=== PATIENT | male | born 1970 | race Caucasian/White ===

== ENCOUNTER → 2020-04-20 09:40 | Outpatient (CLI) | payer OTHER, SELFPAY ==
[2020-04-22 02:12] LABS: COVID19 Sendout Not Detected (Not Detect)
== END ==
PROVIDERS: Visit Provider Student in an Organized Health Care Education/Training Program
DX: Z11.59 Encounter for screening for other viral diseases (principal)
CPT/HCPCS: 87635

== ENCOUNTER 2020-04-23 09:03 | Day surgery (SDC) | payer OTHER, SELFPAY ==
[2020-04-19 13:02] VITALS: BMI 26.6
[2020-04-23] VITALS (12 sets, daily range): BP systolic 92–145; BP diastolic 49–92; PULSE 61–83; RESP 10–18; TEMP 36.4–36.8; O2SAT 92–99; BMI 26.6
[2020-04-23] MEDS: LACTATED RINGERS 1,000 ML 42 ML IV ×2 (09:21→11:38)
--- NOTE | 2020-04-23 09:33 | PM.PREOP ---
Pre-operative Note COVID-19 COVID-19 status: Negative Result date/Date tested (Pos, Neg/Pending): 04/20/20 Interval Note History & Physical reviewed/Exam performed by Physician: Yes Changes to H&P: No
--- NOTE | 2020-04-23 09:35 | PM.OP.1 ---
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 They had failed conservative management and requested operative intervention. Risks and benefits of surgery were discussed and appropriate consents were obtained. Surgeon: Sebastian Wilson Dowel Sander Operator: Caryl Garcia Anesthesia Type: General Operative Notes Findings: None Closure Type: primary Specimen(s): none sent Estimated Blood Loss (mL): 10 Procedure in detail: Patient was brought to the operating room and intubated on the table. A time-out was performed. There were rolled over the well-padded prone position on the Dat table. The back was prepped and draped in standard sterile fashion. Preoperative antibiotics were given. Using fluoroscopy, a 3 cm incision was made to the left of the midline at the L3-4 level. We used Bovie to come down to and split the fascia. We then used the [employer] Ma[employer] dilators with fluoroscopy and then opened our retractors. The soft tissue was cleared off with Bovie, a marker was placed, an x-ray was taken to confirm positioning. We then brought in the microscope. A combination of high-speed bur and Kerrison were used to perform a left-sided laminectomy. We reached across the other side and carefully depressed the dura and remove the ligamentous and facet hypertrophy from the opposite side as well to fully clear up the central canal. We then carefully retracted the dura and expose the disc. This matched up with the MRI with a very large central punctate herniation. This was cleared with bipolar. A scalpel used to perform an annulotomy from the left-hand side and a pituitary was used to perform the diskectomy. The ball probe was swept underneath the dura along the disc to make sure there were no further loose fragments. This was also placed into the disc and moved around to make sure there were no further loose fragments. Once everything was adequately decompressed, the wound was copiously irrigated. An epidural catheter was filled with 100 mcg of fentanyl and 8 mL of 0.25% Marcaine. The dura was carefully depressed under the laminotomy site and the catheter was advanced 6 cm cephalad. The retractor was removed and the fascia was closed. The epidural catheter was then injected without resistance and removed. Vancomycin powder was placed in the wound. Superficial and skin were closed. Sterile dressing was placed. The patient was then rolled over, transferred to the stretcher, and brought to recovery room without complications. Complications: none Post-operative Condition: stable Disposition: PACU Plan for aftercare: Outpatient. Limited bending twisting and lifting until 1st postop visit and then may increase activity as tolerated and start PT.
[2020-04-23] MEDS: CEFAZOLIN 2 GM/100 ML FROZ.PIGGY IV (10:09)
[2020-04-23] MEDS: THROMBIN (RECOMBINANT) 5,000 UNIT VIAL 5000 UNIT TOP (10:37)
[2020-04-23] MEDS: VANCOMYCIN 1,000 MG VIAL 1000 MG TOP (10:37)
[2020-04-23] MEDS: BUPIVACAINE 0.25% (PF) 8 ML, fentaNYL 100 MCG INJ (10:38)
[2020-04-23] MEDS: SODIUM CHLORIDE 0.9% 1,000 ML, GENTAMICIN 80 MG IRR (10:38)
--- NOTE | 2020-04-23 10:47 | SUR.OPER ---
Prone on spine table, head in foam head support, padded chest and pelvic supports, gel pad at knees, lower legs supported by pillows; nipples, genitalia and toes free of pressure, arms secured on foam padded arm boards at <90 degrees abduction. Tape over blanket at thigh secured to table.
[2020-04-23] MEDS: HYDROMORPHONE 2 MG INJ IV ×3 (12:05→12:26)
[2020-04-23] MEDS: ACETAMINOPHEN 325 MG TABLET 650 MG PO (12:17)
[2020-04-23] MEDS: OXYCODONE IR 5 MG TABLET PO (12:18)
--- NOTE | 2020-04-23 12:43 | SUR.PHASEI ---
Pt arrived to PACU with airway, then needed chin lift for airway patency, pt awoke, medicated with Dilaudid, oxycodone and tylenol. Pain was as high as 6/10 now down to 4/10.
--- NOTE | 2020-04-23 13:18 | SUR.PHASEII ---
D/C [id number] discussed, pt voiced an understanding. Pt ready to go, dressed, dressing to back c/d/i. Left unit in stable condition. Ride aware of prescriptions to be filled and d/c instructions in orange envelop.
== END 2020-04-23 13:20 | disposition home or self-care (01) ==
PROVIDERS: PCP Physician Assistant Medical; Referring Provider Orthopaedic Surgery; Visit Provider Orthopaedic Surgery
PROC: (CPT 63030; principal; 2020-04-23 10:45)
DX: M51.16 Intervertebral disc disorders with radiculopathy, lumbar region (principal); M48.062 Spinal stenosis, lumbar region with neurogenic claudication; F17.210 Nicotine dependence, cigarettes, uncomplicated
CPT/HCPCS: 63030; J0690; J1100; J1170; J2250; J2405; J2704; J3010